=== PATIENT | female | born 1950 | race Caucasian/White ===

== ENCOUNTER → 2021-03-05 15:04 | Outpatient (CLI) | payer MEDICARE, SELFPAY ==
--- NOTE | ~2021-03-05 | MM_ITS ---
EXAMINATION: MM screening mary jo BI w katya HISTORY: Screening mammogram TECHNIQUE: Craniocaudal and mediolateral oblique 3-D tomosynthesis images were obtained and synthetic 2-D images were generated. CAD analysis was submitted and interpreted. COMPARISON: 10/27/2018, , 04/28/2016 bilateral digital screening mammogram examinations BREAST PARENCHYMAL COMPOSITION: There are scattered areas of fibroglandular density. FINDINGS: There is no evidence of suspicious mass, calcification, or architectural distortion to sugg est malignancy in either breast. There has been no suspicious interval change. IMPRESSION: 1. No mammographic evidence of malignancy. 2. Recommend routine screening mammography in one year. BI-RADS Category 1: Negative Reviewed, dictated and finalized at location A.
== END ==
DX: Z12.31 Encounter for screening mammogram for malignant neoplasm of breast (principal)
CPT/HCPCS: 77063; 77067

== ENCOUNTER 2022-01-16 12:58 | Emergency (ER) | payer MEDICARE, SELFPAY ==
[2022-01-16 13:06] VITALS: BP 123/65; PULSE 72; RESP 16; TEMP 36.7; O2SAT 100
--- NOTE | 2022-01-16 13:34 | ED.GENADULT ---
HPI - General Adult General Chief complaint: Skin/Abscess/Foreign Body Stated complaint: R ARM INJURY Source: patient Mode of arrival: ambulatory Limitations: no limitations History of Present Illness HPI narrative: Patient presents for evaluation of wound to the right forearm. She states she was getting up from a seated position five days ago when she fell and hit her right forearm against a coffee table. She states she had a brief LOC. witnessed episode. She is not on blood thinners. Denies headache. She states during that episode she believes she had a seizure as she experienced jerking of the chest . She has had six episodes where she thinks she had a seizure since 09/29. She does not have a known seizure disorder. She is scheduled to see her PCP two days from now for evaluation and workup of these symptoms. She noted a skin tear to right forearm following the event. She states she applied neosporin and a dressing to the area. She is here to have that wound dressed today. She denies significant pain in right forearm and does not feel she needs an x ray. Date of last tetanus unknown. Related Data Home Medications Medication Instructions Recorded Confirmed amlodipine 5 mg PO DAILY 01/16/22 01/16/22 budesonide 3 mg PO DAILY 01/16/22 01/16/22 carvedilol 12.5 mg PO DAILY 01/16/22 01/16/22 duloxetine 60 mg PO DAILY 01/16/22 01/16/22 spironolactone 25 mg PO DAILY 01/16/22 01/16/22 Allergies Allergy/AdvReac Type Severity Reaction Status Date / Time quinidine Allergy Unknown Hives Verified 01/16/22 13:06 Dvnthet-AMN-KgN Reductase Allergy Unknown Other Verified 01/16/22 13:06 Inhibitor [Inthkby-Wfn-Pae Reductase Inhibitor] Review of Systems Review of Systems: CONSTITUTIONAL: Denies fever, chills, or sweats. EYES: Denies visual changes, redness, or discharge. ENT: Denies rhinorrhea, congestion, sore throat, or otalgia. CARDIOVASCULAR: Denies chest pain, palpitations, or edema. RESPIRATORY: Denies cough or dyspnea. GASTROINTESTINAL: Denies abdominal pain, nausea, vomiting, or diarrhea. GENITOURINARY: Denies dysuria or hematuria. SKIN: Reports skin tear to right forearm. MUSCULOSKELETAL: Denies back pain, joint pain, or myalgia. NEUROLOGIC: Denies headache, numbness, dizziness, or weakness. PSYCHIATRIC: Denies anxiety or depression. [facility] Past Medical History Medical History Cardiomyopathy Colitis Hypertension Surgical History Surgical History History of breast biopsy History of delivery Family History Family History Father Cerebrovascular accident Mother Family history of diabetes mellitus in first degree relative Family history of malignant neoplasm of breast in first degree relative, Onset Age: 55 Sibling Family history of diabetes mellitus in first degree relative Social History Social History Smoking status: Never smoker Second hand tobacco smoke exposure: No Smoking end date: 10/10/00 Alcohol intake: current Substance use: never Living arrangements: with family Gender identity (if verbalized by the patient): Female Sexual Orientation (if Verbalized by the Patient): Straight or Heterosexual Spiritual care concerns: No Exam Narrative: GENERAL: Well-appearing, well-nourished, and in no acute distress. HEAD: Normocephalic, atraumatic. EYES: PERRLA and EOMI. ENT: Nares clear, no rhinorrhea or epistaxis. Mucous membranes moist. Oropharynx without tonsillar hypertrophy exudate or other lesions. Bilateral TMs pearly lynne nonbulging NECK: Supple. No adenopathy or masses. No carotid bruits or JVD CHEST: Clear to auscultation. No respiratory distress. No wheezes rales or rhonchi HEART: Regular rate and rhythm. No
[2022-01-16] MEDS: TETANUS,DIPHTHERIA,AC PERTUSSIS ADULT (0.5 ML) BOOSTRIX IM (13:43)
[2022-01-16] MEDS: NEOMYCIN/POLYMYXIN/BACITRACIN OINTMENT 15 GM TUBE 1 APPLIC TOPICAL (13:47)
== END 2022-01-16 14:04 | disposition home or self-care (01) ==
PROVIDERS: Emergency Provider Nurse Practitioner
DX: S51.811A Laceration without foreign body of right forearm, initial encounter (principal); W19.XXXA Unspecified fall, initial encounter; S50.11XA Contusion of right forearm, initial encounter; Z23 Encounter for immunization; Z87.891 Personal history of nicotine dependence; I10 Essential (primary) hypertension; I42.9 Cardiomyopathy, unspecified
CPT/HCPCS: 90471; 90715; 99212; A9270; G0463

== ENCOUNTER 2022-04-06 16:47 | Observation (INO) | payer MEDICARE, SELFPAY ==
[2022-04-06] VITALS (25 sets, daily range): BP systolic 101–153; BP diastolic 48–102; PULSE 70–84; RESP 10–28; TEMP 36; O2SAT 93–100; BMI 26.4
--- NOTE | ~2022-04-06 | CT_ITS ---
EXAMINATION: CT brain wo con DATE: 04/06/2022 17:23 INDICATION: syncope, head injury . TECHNIQUE: Computed tomography (CT) of the head was performed without intravenous contrast. The mA wa s adjusted according to patient size. Iterative reconstruction technique was employed. The dose-lengt h product was 605.33 mGy-cm. COMPARISON: MRI brain 05/17/2012. FINDINGS: No acute intracranial hemorrhage or extra-axial fluid collection. No hydrocephalus, mass, or herniation. No acute ischemic infarct. Unremarkable dural venous sinus attenuation. No acute osseous abnormality. The aerated spaces are clear. Mild chronic white matter change. Mild atrophy. Atherosclerotic intracranial calcifications. IMPRESSION: No acute intracranial process. Reviewed, dictated and finalized at location K.
--- NOTE | ~2022-04-06 | US_ITS ---
EXAMINATION: US carotid duplex BI DATE: 04/07/2022 16:35 INDICATION: Transient alteration of awareness TECHNIQUE: Grayscale, color Doppler, and pulsed Doppler images of the cervical carotid arteries were obtained. The degree of vessel stenosis is placed in one of the following categories: normal, <50%, 5 0-69%, >=70% but less than near-occlusion, near-occlusion, or total occlusion. Note that percent sten osis relative to normal distal artery lumen diameter is indirectly measured from velocity measurement s as described by Keon, et al. Radiology 2003; 229:340-346. COMPARISON: None. FINDINGS: RIGHT: The right common carotid artery (CCA) peak systolic velocity (PSV) is 92 cm/s. The right internal car otid artery (ICA) PSV is 105 cm/s. The right ICA end-diastolic velocity (EDV) is 29 cm/s. The right I CA/CCA PSV ratio is 1.1. Grayscale and color Doppler images yield an estimate of less than 50% diamet er reduction from plaque in the ICA. The external carotid artery (ECA) PSV is 114 cm/s. There is ante grade flow in the right vertebral artery. LEFT: The left CCA PSV is 120 cm/s. The left ICA PSV is 89 cm/s. The left ICA EDV is 17 cm/s. The left ICA/ CCA PSV ratio is 0.7. Grayscale and color Doppler images yield an estimate of less than 50% diameter reduction from plaque in the ICA. The ECA PSV is 219 cm/s. There is antegrade flow in the left verteb ral artery. IMPRESSION: 1. <50% stenosis in the right internal carotid artery. 2. <50% stenosis in the left internal carotid artery. Reviewed, dictated and finalized at location A.
--- NOTE | 2022-04-06 16:57 | ECG_ITS ---
Measurements Intervals [place] Rate: 79 P: 44 DE: 207 QRS: -5 QRSD: 92 T: 79 QT: 400 QTc: 459 Interpretive Statements SINUS RHYTHM INFERIOR MYOCARDIAL INFARCTION , OF INDETERMINATE AGE [40+ ms Q WAVE AND/OR ST/T ABNORMALITY IN II/aVF] ANTEROSEPTAL MYOCARDIAL INFARCTION , OF INDETERMINATE AGE [40+ ms Q WAVE IN V1-V4] NO PREVIOUS ECG AVAILABLE FOR COMPARISON Electronically Signed On 04-07-2022 11:56:36 CDT by Iam Aceves M.D.
--- NOTE | 2022-04-06 17:11 | ED.SYNCOPE ---
HPI - Syncope General Chief Complaint: Syncope Stated Complaint: head injury Time Seen by Provider: 04/06/22 17:06 History of Present Illness HPI narrative: Pt had syncopal episode and fell and struck back of head. Pt now answering repetitive questions and doesn't remember event. Pt has some discomfort in back of head. Related Data Home Medications Medication Instructions Recorded Confirmed amlodipine 5 mg tablet 5 mg PO DAILY 01/16/22 01/16/22 budesonide 3 mg 3 mg PO DAILY 01/16/22 01/16/22 capsule,delayed,extended release carvedilol 12.5 mg tablet 12.5 mg PO DAILY 01/16/22 01/16/22 duloxetine 60 mg capsule,delayed 60 mg PO DAILY 01/16/22 01/16/22 release spironolactone 25 mg tablet 25 mg PO DAILY 01/16/22 01/16/22 Allergies Allergy/AdvReac Type Severity Reaction Status Date / Time quinidine Allergy Unknown Hives Verified 04/06/22 17:05 Qrdewrm-NRR-YtO Reductase Allergy Unknown Other Verified 04/06/22 17:05 Inhibitor [Zgxhtwn-Whd-Qjz Reductase Inhibitor] Review of Systems Review of Systems: All systems reviewed & are unremarkable except as noted in HPI and below PMFSH Past Medical History Medical History (Updated 04/06/22 @ 18:45 by Michael Weaver III, DO) Cardiomyopathy Colitis Hypertension Surgical History Surgical History History of breast biopsy History of delivery Family History Family History Father Cerebrovascular accident Mother Family history of diabetes mellitus in first degree relative Family history of malignant neoplasm of breast in first degree relative, Onset Age: 55 Sibling Family history of diabetes mellitus in first degree relative Social History Social History Smoking status: Never smoker Second hand tobacco smoke exposure: No Smoking end date: 10/10/00 Alcohol intake: current Substance use: never Gender identity (if verbalized by the patient): Female Sexual Orientation (if Verbalized by the Patient): Straight or Heterosexual Spiritual care concerns: No Exam Const: General: healthy appearing Nutritional Appearance: well nourished Orientation/consciousness: patient oriented x3 Limitations: altered mental status HENMT: Head: hematoma left occipital and right occipital 3 cm Eyes: Pupils: Equal, round and reactive pupils present EOM: EOMs intact bilaterally Neck: Neck: normal visual inspection, no lymphadenopathy and no meningeal signs Resp: Effort & Inspection: normal respiratory effort and uses accessory muscles Auscultation: clear to auscultation bilaterally and breath sounds absent Cardio: Rate: regular rate Rhythm: regular rhythm GI: Auscultation: normal bowel sounds Skin: General skin exam: normal color Rashes: no rashes Neuro: General: patient oriented x3, moves all extremities, no focal motor deficits and CN's II-XI intact bilaterally Cranial nerves: Yes Nystagmus not present Speech: normal speech Extrem: General: normal to inspection and no clubbing, cyanosis or edema Psych: Mental Status: mental status grossly normal Affect: normal affect Attitude: cooperative Course Vital Signs Vital signs: Vital Signs Pulse Rate 81 04/06/22 16:46 Respiratory Rate 15 04/06/22 16:46 Blood Pressure 152/102 H 04/06/22 16:46 Pulse Oximetry 98 04/06/22 16:46 Oxygen Delivery Room Air 04/06/22 16:46 Pulse Rate 71 04/06/22 17:48 Respiratory Rate 21 H 04/06/22 17:48 Blood Pressure 143/78 H 04/06/22 17:48 Pulse Oximetry 100 04/06/22 17:48 Oxygen Delivery Room Air 04/06/22 17:45 MDM - Syncope Lab Data Result diagrams: 04/06/22 17:53 04/06/22 17:53 Labs: Lab Results 04/06/22 04/06/22 04/06/22 Range/Units 17:53 17:53 17:53 WBC 10.0 (4.5-10.0) K/mm3 RBC
--- NOTE | 2022-04-06 17:19 | PC.NURSE ---
Patient off unit to CT.
[2022-04-06 18:04] LABS: Basophils Absolute Auto 0.1 K/mm3 (0.0-0.1); Basophils Percent Auto 0.6 % (0.2-1.2); Eosinophils Absolute Auto 0.1 K/mm3 (0-0.3); Eosinophils Percent Auto 1.1 % (0-4.4); Hematocrit 41.4 % (37.0-47.0); Hemoglobin 14.1 g/dL (12.0-15.0); Immature Granulocyte Absolute 0.06 K/mm3 (0.00-0.031); Immature Granulocyte Percent A 0.6 % (0-0.5); Lymphocytes Absolute Auto 2.35 K/mm3 (0.9-3.2); Lymphocytes Percent Auto 23.4 % (18.3-44.2); Mean Corpuscular HGB Conc 34.1 g/dl (32-36); Mean Corpuscular Hemoglobin 32.8 pg (26-34); Mean Corpuscular Volume 96.3 fl (80-100); Mean Platelet Volume 8.6 fl (7.4-10.4); Monocytes Absolute Auto 1.1 K/mm3 (0.1-0.6); Monocytes Percent Auto 10.8 % (2.6-8.5); Neutrophils Absolute Auto 6.4 K/mm3 (1.3-6.7); Neutrophils Percent Auto 63.5 % (45.5-73.1); Platelet Count Result 351 k/mm3 (150-375); Red Cell Distribution Width 12.5 % (11.5-14.5)
[2022-04-06 18:15] LABS: Alanine Aminotransferase 30 U/L (6-35); Albumin Level 4.3 g/dL (3.5-5.1); Alkaline Phosphatase 80 U/L (38-126); Anion Gap 7 mmol/L (8-16); Aspartate Amino Transferase 38 U/L (14-36); Bilirubin,Total 0.3 mg/dL (0.2-1.3); Blood Urea Nitrogen 16 mg/dL (7-17); Calcium 9.1 mg/dL (8.4-10.2); Carbon Dioxide 29 mmol/L (22-30); Chloride 101 mmol/L (98-107); Estimated CRCL calculation 57 ml/min; Estimated Glomerular Filt Rate > 60; Glucose 108 mg/dL (65-110); Potassium 4.2 mmol/L (3.4-5.0); Sodium 137 mmol/L (137-145)
[2022-04-06 18:19] LABS: Prothrombin Time 12.7 Seconds (11.1-14.7)
[2022-04-06 18:20] LABS: Partial Thromboplastin Time 26.7 SECONDS (22.3-36.8)
[2022-04-06 18:53] LABS: Troponin I < 0.012 ng/mL (0.000-0.034)
--- NOTE | 2022-04-06 19:07 | PC.NURSE ---
Patient report given to JOHNATHON Grajeda. All questions answered and care of pt transferred.
--- NOTE | 2022-04-06 20:04 | ADMGEN ---
This patient, Mary Suarez, was admitted to Medical Room 253-01. Patient/family oriented to hospital policies and general routines including ID bracelet, bed and alarms, visiting hours, pain management, procedures, bathroom and other care routines, personal items, smoking policy, room service/diet, and visiting hours. Information on how to activate the Rapid Response Team has been discussed. Patient/Family are encouraged to report perceived risks to care and to ask questions if they do not understand what they are told or what they should do.
--- NOTE | 2022-04-06 20:26 | PM.IMHP ---
H&P: HPI History of Present Illness Date/Time: 04/06/22 20:26 Chief Complaint: Fall Narrative: this is a 71-year-old female with past medical history significant for cardiomyopathy, hypertension, alcohol dependence. Patient was brought to the emergency after having an episode of syncope according to the patient she had gotten up and felt dizzy next thing she was on route to the hospital in an ambulance was present at home and heard the noise. Patient has been in her usual state of health denies any diaphoresis, shortness of breath, palpitations, nausea, vomiting, diarrhea, abdominal pain, no fevers no rigors no chills, no chest pain, no calves pain, no leg swelling, no ankle swelling, no pain with deep inspiration. Patient hit her head on the way down she does have a headache which is posterior, denies any vision changes, patient drinks 3 oz of vodka a night and also vapes. Preliminary workup was significant for head CT with no acute intracranial process, rest of workup was essentially nonrevealing. Review of Systems Review of Systems: Patient was brought to the emergency room via ambulance after she had a syncopal episode with collapse hitting her head on the way down to the floor. Constitutional: Constitutional: Denies chills, Denies fever(s), Reports headache(s) ( After the fall), Denies malaise, Denies night sweats, Denies poor appetite and Denies weakness Eyes: Eyes: Denies change in vision ENT: Denies dysphagia, Denies vertigo, Reports dizziness, Denies odynophagia and Denies disequilibrium Cardiovascular: Cardiovascular: Denies chest pain, Reports syncope, Denies pedal edema, Denies irregular heart rhythm, Denies leg edema, Reports lightheadedness, Denies palpitations, Denies dyspnea on exertion and Denies paroxysmal nocturnal dyspnea Respiratory: Respiratory: Denies cough, Denies excessive phlegm production, Denies dyspnea and Denies wheezing Gastrointestinal: Gastrointestinal: Denies abdominal pain, Denies dyspepsia, Denies heartburn, Denies nausea and Denies vomiting Genitourinary: Genitourinary: Denies dysuria Musculoskeletal: Musculoskeletal: Denies abnormal gait, Denies back pain, Denies deformity, Denies arthralgias, Denies joint swelling and Denies muscle weakness Integumentary/Breasts: Skin/Breast: Denies rash Psychiatric: Psychiatric: Reports no additional psychiatric complaints and Reports as per HPI Endocrine: Endocrine: Denies cold intolerance, Denies fatigue, Denies flushing, Denies heat intolerance, Denies polyphagia, Denies polydipsia and Denies palpitations Hematologic/Lymphatic: Hematologic/Lymphatic: Reports no additional hematologic/lymphatic complaints and Reports as per HPI Allergic/Immunologic: Allergic/Immunologic: Reports no additional allergic/immunologic complaints and Reports as per HPI PMFSH Past Medical History Medical History (Updated 04/07/22 @ 14:17 by Windy Caraballo PA-C) Cardiomyopathy Colitis Hypertension Surgical History Surgical History History of breast biopsy History of delivery Family History Family History Father Cerebrovascular accident Mother Family history of diabetes mellitus in first degree relative Family history of malignant neoplasm of breast in first degree relative, Onset Age: 55 Sibling Family history of diabetes mellitus in first degree relative Social History Social History Smoking status: Never smoker Second hand tobacco smoke exposure: No Alcohol intake: current Drinks per week: 10 Substance use: current Substance use type: marijuana Gender identity (if verbalized by the patient): Female Sexual Orientation (if Verbalized by the Patient): Straight or Heterosexual Spiritual care concerns: No Meds Home Medications and Al
[2022-04-06 21:30] LABS: Troponin I < 0.012 ng/mL (0.000-0.034)
[2022-04-07] VITALS (12 sets, daily range): BP systolic 100–129; BP diastolic 55–60; PULSE 73–96; RESP 12–20; TEMP 36.1–36.8; O2SAT 94–97
[2022-04-07] MEDS: SODIUM CHLORIDE 0.9% IV 1,000 ML 999 ML IV CONT (01:38)
[2022-04-07] MEDS: ACETAMINOPHEN 500 MG TABLET 1000 MG PO (01:47)
[2022-04-07] MEDS: carvediloL 12.5 MG TABLET PO (08:23)
[2022-04-07] MEDS: ASPIRIN 81 MG CHEWABLE TABLET PO (08:23)
[2022-04-07] MEDS: ASCORBIC ACID 500 MG TABLET 1000 MG PO (08:24)
[2022-04-07] MEDS: BUDESONIDE 3 MG CAP.SR.24H PO (08:25)
[2022-04-07] MEDS: CHOLECALCIFEROL 1,000 UNITS TABLET 5000 UNITS PO (08:26)
[2022-04-07] MEDS: LORATADINE 10 MG TABLET PO (08:27)
[2022-04-07] MEDS: CYANOCOBALAMIN 1,000 MCG TABLET 1000 MCG PO (08:27)
[2022-04-07] MEDS: DULoxetine HCL 60 MG CAPSULE.DR PO (08:27)
[2022-04-07] MEDS: THERAPEUTIC MULTIVITAMINS/MINERALS TAB (*BKC) 1 TABLET PO (08:28)
[2022-04-07 08:48] LABS: Basophils Absolute Auto 0.1 K/mm3 (0.0-0.1); Basophils Percent Auto 0.7 % (0.2-1.2); Eosinophils Absolute Auto 0.1 K/mm3 (0-0.3); Eosinophils Percent Auto 0.9 % (0-4.4); Hematocrit 37.8 % (37.0-47.0); Hemoglobin 12.6 g/dL (12.0-15.0); Immature Granulocyte Absolute 0.04 K/mm3 (0.00-0.031); Immature Granulocyte Percent A 0.5 % (0-0.5); Lymphocytes Absolute Auto 2.41 K/mm3 (0.9-3.2); Lymphocytes Percent Auto 31.3 % (18.3-44.2); Mean Corpuscular HGB Conc 33.3 g/dl (32-36); Mean Platelet Volume 8.7 fl (7.4-10.4); Monocytes Absolute Auto 0.9 K/mm3 (0.1-0.6); Monocytes Percent Auto 11.6 % (2.6-8.5); Neutrophils Absolute Auto 4.2 K/mm3 (1.3-6.7); Platelet Count Result 299 k/mm3 (150-375); Red Blood Count 3.82 M/mm3 (4.2-5.4); Red Cell Distribution Width 12.6 % (11.5-14.5); White Blood Count 7.7 K/mm3 (4.5-10.0)
[2022-04-07 09:03] LABS: Alanine Aminotransferase 26 U/L (6-35); Albumin Level 3.5 g/dL (3.5-5.1); Alkaline Phosphatase 61 U/L (38-126); Anion Gap 6 mmol/L (8-16); Aspartate Amino Transferase 31 U/L (14-36); Bilirubin,Total 0.4 mg/dL (0.2-1.3); Blood Urea Nitrogen 11 mg/dL (7-17); Calcium 8.2 mg/dL (8.4-10.2); Carbon Dioxide 26 mmol/L (22-30); Chloride 107 mmol/L (98-107); Estimated CRCL calculation 46 ml/min; Estimated Glomerular Filt Rate > 60; Glucose 125 mg/dL (65-110); Potassium 3.8 mmol/L (3.4-5.0); Sodium 139 mmol/L (137-145)
--- NOTE | 2022-04-07 13:58 | PM.IMPN ---
Progress Note: A&P Assessment and Plan (1) Syncope: Code(s): R55 - Syncope and collapse Status: Acute Assessment and Plan: -recurrent syncopal episodes x 4 months -she reports it to be positional, will check orthostatics -CT head negative, no focal neuro deficits -neuro consulted -continue monitoring on Telemetry, no events overnight -check echo -check carotid dopplers -drinks 3oz vodka daily, check etoh level though it has been almost 24 hours since presentation to the hospital, check UDS -no signs of infection but will check UA, no fever or leukocytosis (2) Cardiomyopathy: Code(s): I42.9 - Cardiomyopathy, unspecified Status: Acute Assessment and Plan: -last echo was 8 months ago -followed by Dr. Lc Spaulding in [facility], he apparently wanted her to get a stress echo but she has not gone back for that. Has not seen him since these episodes started 4 months ago -check echo -monitor on telemetry -will try to contact her naval engineer, may need an event monitor outpatient but will need them to coordinate it for her (3) Hypertension: Code(s): I10 - Essential (primary) hypertension Status: Acute Assessment and Plan: -stable -continue home meds -check orthostatics (4) EtOH dependence: Code(s): F10.20 - Alcohol dependence, uncomplicated Status: Acute Assessment and Plan: -drinks 3 oz vodka daily -check folate and B12 -no withdrawal symptoms at this time Subjective Date/time seen: 04/07/22 13:58 Interval history: Pt is a 71 yo female w/ hx of hypertrophic cardiomyopathy, HTN, colitis, and daily ETOH use who presented to the ED for evaluation of syncope. Pt tells me that she has had approximately 2 episodes of syncope per month for the past 4 months. She saw her pcp 3 months ago and had an MRI of her brain which was normal. She sees a naval engineer Dr. Lc Spaulding in [facility] for her hypertrophic cardiomyopathy, most recent echo was 8 months ago. She has not seen him since these episodes began 4 months ago. She denies cp/sob prior to these episodes. She does report that she feels like they happen most often w/ position changes such as standing up too fast. The episode that brought her to the ED she states she stood up to go to the kitchen to make a drink and felt light headed, shortly after that she passed out. She states she had not had any alcohol yet at that point but typically has 3 oz of vodka every single night. Review of Systems Review of Systems: All systems reviewed & are unremarkable except as noted in HPI and below Exam Narrative: General: No acute distress, non toxic appearing Eyes: PERRL, no scleral icterus HEENT: superficial abrasions noted to posterior head w/ dried blood, external ears normal, MMM Respiratory: No respiratory distress, Lungs CTA bilaterally, no wheezing Cardiovascular: RRR, no murmur Abdominal: Soft, nontender, non distended, no rebound or guarding Musculoskeletal: Moves all 4 extremities, no edema Neurological: A/Ox3, speech clear, no facial asymmetry, cranial nerves II-XII grossly intact, equal investigations chief strength, 5/5 strength BLE and LUCINDA Skin: Warm, dry Psychiatric: Normal affect, normal mood Objective Data Vital Signs Vital Signs: Vital Signs - 24 hr 04/06/22 16:46 04/06/22 16:54 04/06/22 17:00 Temperature Pulse Rate 81 82 78 Respiratory Rate 15 22 H 16 Blood Pressure 152/102 H Pulse Oximetry 98 99 98 Oxygen Delivery Room Air 04/06/22 17:01 04/06/22 17:20 04/06/22 17:21 Temperature Pulse Rate 81 78 77 Respiratory Rate 10 L 19 15 Blood Pressure 153/74 H 139/78 Pulse Oximetry 97 94 98 Oxygen Delivery 04/06/22 17:22 04/06/22 17:30 04/06/22 17:31 Temperature Pulse Rate 78 78 75 Respiratory Rate 17 17 14 Blood Pressure 145/73 H Pulse Oximetry 98 97 98 Oxygen Delivery 04/06/22 17:46 04/06/22 17:48 04/06/22 17:45 Temperature
[2022-04-07 15:39] LABS: Ethanol < 10 mg/dL (<10)
[2022-04-07 16:29] LABS: Vitamin B12 > 1000.0 pg/mL (239-931)
[2022-04-07 17:36] LABS: Appearance Urine Clear (Clear); Bilirubin Urine Negative (Negative); Blood Urine Negative (Negative); Color Urine Yellow (Yellow); Glucose Urine UA Negative (Negative); Ketones Urine Negative (Negative); Leukocyte Esterase Ur 1+ LEU/UL (Negative); Nitrate Urine Negative (Negative); Protein Urine Negative (Negative); Specific Grav Ur 1.015 (1.001-1.035); Urobilinogen Urine 0.2 mg/dL (<2.0); pH Urine 7.5 (5.0-9.0)
[2022-04-07 17:53] LABS: Amphetamine Screen Urine Negative (Negative); Bacteria Urine Trace /hpf; Barbiturate Screen Urine Negative (Negative); Benzodiazepines Screen Urine Negative (Negative); Cannabinoid Screen Urine Positive (Negative); Cocaine Screen Urine Negative (Negative); Methadone Screen Urine Negative (Negative); Mucus Urine Rare /lpf; Opiate Screen Urine Negative (Negative); Phencyclidine Screen Urine Negative (Negative); RBC Urine 0-2 /hpf (0-2); Squamous Epithelial Cell Urine Rare /hpf (Few); WBC Urine 0-3 /hpf
[2022-04-07 18:05] LABS: Add Urine Microscopic? YES
[2022-04-07] MEDS: MELATONIN 5 MG TABLET PO (20:18)
[2022-04-08] VITALS (8 sets, daily range): BP systolic 97–133; BP diastolic 63–78; PULSE 69–77; RESP 12; TEMP 36.5; O2SAT 97
[2022-04-08 06:40] LABS: Basophils Absolute Auto 0.1 K/mm3 (0.0-0.1); Basophils Percent Auto 0.6 % (0.2-1.2); Eosinophils Absolute Auto 0.1 K/mm3 (0-0.3); Eosinophils Percent Auto 1.3 % (0-4.4); Hemoglobin 13.7 g/dL (12.0-15.0); Immature Granulocyte Absolute 0.05 K/mm3 (0.00-0.031); Immature Granulocyte Percent A 0.6 % (0-0.5); Lymphocytes Absolute Auto 2.86 K/mm3 (0.9-3.2); Lymphocytes Percent Auto 34.3 % (18.3-44.2); Mean Corpuscular HGB Conc 32.6 g/dl (32-36); Mean Corpuscular Hemoglobin 32.9 pg (26-34); Mean Corpuscular Volume 100.7 fl (80-100); Monocytes Absolute Auto 1.1 K/mm3 (0.1-0.6); Monocytes Percent Auto 12.7 % (2.6-8.5); Neutrophils Absolute Auto 4.2 K/mm3 (1.3-6.7); Neutrophils Percent Auto 50.5 % (45.5-73.1); Platelet Count Result 304 k/mm3 (150-375); Red Blood Count 4.17 M/mm3 (4.2-5.4); Red Cell Distribution Width 12.4 % (11.5-14.5); White Blood Count 8.4 K/mm3 (4.5-10.0)
[2022-04-08 06:46] LABS: Alanine Aminotransferase 25 U/L (6-35); Albumin Level 3.8 g/dL (3.5-5.1); Alkaline Phosphatase 63 U/L (38-126); Anion Gap 3 mmol/L (8-16); Aspartate Amino Transferase 35 U/L (14-36); Bilirubin,Total 0.5 mg/dL (0.2-1.3); Blood Urea Nitrogen 12 mg/dL (7-17); Calcium 8.6 mg/dL (8.4-10.2); Carbon Dioxide 28 mmol/L (22-30); Chloride 107 mmol/L (98-107); Estimated CRCL calculation 46 ml/min; Estimated Glomerular Filt Rate > 60; Glucose 97 mg/dL (65-110); Potassium 3.7 mmol/L (3.4-5.0); Sodium 138 mmol/L (137-145)
[2022-04-08] MEDS: BUDESONIDE 3 MG CAP.SR.24H PO (08:17)
[2022-04-08] MEDS: THERAPEUTIC MULTIVITAMINS/MINERALS TAB (*BKC) 1 TABLET PO (08:17)
[2022-04-08] MEDS: CYANOCOBALAMIN 1,000 MCG TABLET 1000 MCG PO (08:17)
[2022-04-08] MEDS: DULoxetine HCL 60 MG CAPSULE.DR PO (08:18)
[2022-04-08] MEDS: ASPIRIN 81 MG CHEWABLE TABLET PO (08:18)
[2022-04-08] MEDS: CHOLECALCIFEROL 1,000 UNITS TABLET 5000 UNITS PO (08:18)
[2022-04-08] MEDS: ASCORBIC ACID 500 MG TABLET 1000 MG PO (08:18)
[2022-04-08] MEDS: LORATADINE 10 MG TABLET PO (08:19)
[2022-04-08] MEDS: carvediloL 12.5 MG TABLET PO (08:19)
[2022-04-08] MEDS: ACETAMINOPHEN 500 MG TABLET 1000 MG PO (08:19)
--- NOTE | 2022-04-08 11:44 | PM.DS ---
DS: Admitting Diagnosis Discharge Date 04/08/22 Admitting Diagnosis syncope DS: Discharge Diagnosis Discharge Diagnosis (1) Left against medical advice: Code(s): Z53.29 - Procedure and treatment not carried out because of patient's decision for other reasons Status: Acute Assessment and Plan: -counseled on risks of leaving including cardiac arrhythmia/arrest/. Pt verbalized understanding and completed AMA forms. I still recommended that she make an appt with her white sugar syrup operator FREDDY. (2) Syncope: Code(s): R55 - Syncope and collapse Status: Acute Assessment and Plan: -recurrent syncopal episodes x 4 months -she reports it to be positional, orthostatics were positive. No signs of dehydration on UA or labs. -CT head negative, no focal neuro deficits -neuro consulted -continue monitoring on Telemetry, no events overnight -check echo -carotid dopplers negative -drinks 3oz vodka daily, etoh level negative though it had been almost 24 hours since presentation to the hospital, UDS positive for marijuana -no signs of infection, UA negative, no fever or leukocytosis (3) Cardiomyopathy: Code(s): I42.9 - Cardiomyopathy, unspecified Status: Acute Assessment and Plan: -last echo was 8 months ago -followed by Dr. Lc Spaulding in [facility], he apparently wanted her to get a stress echo but she has not gone back for that.? Has not seen him since these episodes started 4 months ago -check echo -monitor on telemetry -left VM for her white sugar syrup operator, may need an event monitor outpatient but will need them to coordinate it for her. Have not heard back. (4) Hypertension: Code(s): I10 - Essential (primary) hypertension Status: Acute Assessment and Plan: -positive orthostatics -held amlodipine, will continue coreg for her cardiomyopathy (5) EtOH dependence: Code(s): F10.20 - Alcohol dependence, uncomplicated Status: Acute Assessment and Plan: -drinks 3 oz vodka daily -check folate and B12 -no withdrawal symptoms at this time DS: Summary Hospital Course Reason for hospitalization: 71 yo female w/ hx of hypertrophic cardiomyopathy, HTN, colitis, and daily ETOH use who presented to the ED for evaluation of syncope. Please see HPI for further details. Hospital Course: Please see above for details of hospital course. Pt signed out AMA. Status at Discharge Cognitive/behavioral status at discharge: stable Functional status at discharge: independent ambulation Overall status at discharge: patient is not back to baseline Time Spent with Patient Time attestation: Total time spent providing and/or coordinating discharge services: 60 Time spent: Greater than 30 minutes Exam Narrative: General: No acute distress, non toxic appearing Eyes: PERRL, no scleral icterus HEENT: superficial abrasions noted to posterior head w/ dried blood, external ears normal, MMM Respiratory: No respiratory distress Cardiovascular: no peripheral edema Abdominal: non distended Musculoskeletal: Moves all 4 extremities, no edema Neurological: A/Ox4, speech clear, no facial asymmetry, cranial nerves II-XII grossly intact Skin: Warm, dry Psychiatric: Normal affect, anxious mood DS: Data Data Completed and Pending Labs on day of discharge: Labs from last 24 hours 04/08/22 04/08/22 04/07/22 05:48 05:48 17:15 WBC 8.4 RBC 4.17 L Hgb 13.7 Hct 42.0 MCV 100.7 H MCH 32.9 MCHC 32.6 RDW 12.4 Plt Count 304 MPV 9.0 Immature Gran % (Auto) 0.6 H Neut % (Auto) 50.5 Lymph % (Auto) 34.3 [place] % (Auto) 12.7 H Eos % (Auto) 1.3 Baso % (Auto) 0.6 Lymph # (Auto) 2.86 [place] # (Auto) 1.1 H Eos # (Auto) 0.1 Baso # (Auto) 0.1 Abs Immat Gran (auto) 0.05 H Absolute Neuts (auto) 4.2 Absolute Nucleated RBC 0.0 Nucleated RBC % 0.0 Sodium 138 Potassium 3.7 Chloride 1
--- NOTE | 2022-04-08 11:48 | PC.NURSE ---
when consulting technical director arrived to pt's room she states she just had an echocardiogram and that she did not realize she was having this test today, I reviewed with pt that she stated her last echo was 8 months ago and that her syncopal episodes have been within the last 4 months she agreed that the last echo was 8 months ago, I assured pt that we would be able to get this information to her digital marketing assistant at discharge, she states she just wants to go home and will follow up later for testing and with her MD, I reviewed with pt that falling and dizziness is a symptom that needs to be followed up upon
--- NOTE | 2022-04-08 12:03 | PC.NURSE ---
pt wishes to sign out AMA and her is here to pick her up
--- NOTE | 2022-04-08 12:46 | WPDNEURCNPN ---
Assessment and Plan Assessment and plan (1) Syncope: Code(s): R55 - Syncope and collapse Status: Acute Plan history of syncopal episode with negative CT scan of the head particularly no evidence of appy or subdural bleed or major stroke and carotid Doppler studies are normal nonfocal neuro examination at this stage depression wants to be discharged it is okay to be followed by her physician at [facility] Consult date: 04/08/22 Time Seen: 09:00 HPI: Mary Suarez is a 71 year old female has been admitted to [facility] through the emergency room for the ongoing diagnosis of 1. Cardiomyopathy 2. Hypertension she was brought to the emergency room after having an episode of syncope when she felt extremely dizzy in upright posture reportedly heard the noise she has been her in her usual state of health give no specific complaints was complaining of headache mainly located posteriorly it does mention in the ER notes she should drink 3 oz of vodka a night and does have ongoing history of cardiomyopathy, colitis, hypertension, current alcohol intake alert 10 drinks per week, no smoker, home medications included in particularly amlodipine 5 mg daily duloxetine 60 mg daily aspirin 81 mg daily Review of Systems Review of Systems: All systems reviewed & are unremarkable except as noted in HPI and below PMFSH Past Medical History Medical History Cardiomyopathy Colitis Hypertension Surgical History Surgical History History of breast biopsy History of delivery Family History Family History Father Cerebrovascular accident Mother Family history of diabetes mellitus in first degree relative Family history of malignant neoplasm of breast in first degree relative, Onset Age: 55 Sibling Family history of diabetes mellitus in first degree relative Social History Social History Smoking status: Never smoker Second hand tobacco smoke exposure: No Alcohol intake: current Drinks per week: 10 Substance use: current Substance use type: marijuana Gender identity (if verbalized by the patient): Female Sexual Orientation (if Verbalized by the Patient): Straight or Heterosexual Spiritual care concerns: No Meds Home Medications and Allergies Home Medications Medication Instructions Recorded Confirmed Type amlodipine 5 mg tablet 5 mg PO DAILY 01/16/22 04/06/22 History budesonide 3 mg 3 mg PO DAILY 01/16/22 04/06/22 History capsule,delayed,extended release carvedilol 12.5 mg tablet 12.5 mg PO DAILY 01/16/22 04/06/22 History duloxetine 60 mg capsule,delayed 60 mg PO DAILY 01/16/22 04/06/22 History release spironolactone 25 mg tablet 25 mg PO DAILY 01/16/22 04/06/22 History ascorbic acid (vitamin C) 1,000 mg 1,000 mg PO DAILY 04/06/22 04/06/22 History tablet aspirin 81 mg chewable tablet 81 mg PO DAILY 04/06/22 04/06/22 History calcium carbonate 600 mg-vitamin 1 tablet PO BID 04/06/22 04/06/22 History D3 10 mcg (400 unit) tablet cetirizine 10 mg tablet 10 mg PO DAILY 04/06/22 04/06/22 History cholecalciferol (vitamin D3) 125 5,000 unit PO DAILY 04/06/22 04/06/22 History mcg (5,000 unit) capsule coenzyme [id number] E 100 mg-5 1 cap PO BID 04/06/22 04/06/22 History unit capsule cyanocobalamin (vitamin B-12) 1,000 mcg PO DAILY 04/06/22 04/06/22 History 1,000 mcg tablet multivitamin with minerals 1 tablet PO DAILY 04/06/22 04/06/22 History triamcinolone acetonide 55 2 mcg intranasal DAILY PRN 04/06/22 04/06/22 History mcg/actuation nasal spray,aerosol congestion Allergies Allergy/AdvReac Type Severity Reaction Status Date / Time quinidine Allergy Unknown Hives Verified 04/06/22 17:05 [id number] Reductase Allergy Unknown Other Verified 04/06/22 17:05 Inhibitor
[2022-04-11 14:15] LABS: Red Blood Cell Folate 923 ng/mL RBC (>280)
== END 2022-04-08 12:04 | disposition left against medical advice (07) ==
LOC: ANHED 18:45 → ANH2MED 19:17
PROVIDERS: Admitting Provider Student in an Organized Health Care Education/Training Program; Emergency Provider Emergency Medicine; Visit Provider Physician Assistant
DX: R55 Syncope and collapse (principal); S06.0X9A Concussion with loss of consciousness of unspecified duration, initial encounter; W18.39XA Other fall on same level, initial encounter; I10 Essential (primary) hypertension; I42.9 Cardiomyopathy, unspecified; F12.90 Cannabis use, unspecified, uncomplicated; Z79.82 Long term (current) use of aspirin; F10.20 Alcohol dependence, uncomplicated
CPT/HCPCS: 36415; 70450; 80053; 80307; 81001; 82607; 82747; 84484; 85025; 85610; 85730; 93005; 93880; 99285; A9270; G0378; J7030

== ENCOUNTER → 2022-06-23 13:32 | Outpatient (CLI) | payer MEDICARE, SELFPAY ==
--- NOTE | ~2022-06-23 | MM_ITS ---
EXAMINATION: MM screening mary jo BI w [facility] HISTORY: Screening mammogram TECHNIQUE: Craniocaudal and mediolateral oblique 3-D tomosynthesis images were obtained and synthetic 2-D images were generated. CAD analysis was submitted and interpreted. COMPARISON: 03/05/2021, 08/23/2019, 05/14/2017 bilateral screening mammogram examinations BREAST PARENCHYMAL COMPOSITION: There are scattered areas of fibroglandular density. FINDINGS: There is no evidence of suspicious mass, calcification, or architectural distortion to sugg est malignancy in either breast. There has been no suspicious interval change. IMPRESSION: 1. No mammographic evidence of malignancy. 2. Recommend routine screening mammography in one year. BI-RADS Category 1: Negative Reviewed, dictated and finalized at location A.
== END ==
DX: Z12.31 Encounter for screening mammogram for malignant neoplasm of breast (principal)
CPT/HCPCS: 77063; 77067